=== PATIENT | female | born 2000 | race Caucasian/White ===

== ENCOUNTER 2024-04-13 18:09 | Emergency (ER) | payer OTHER, SELFPAY ==
[2024-04-13 18:10] VITALS: BMI 25.2
[2024-04-13 18:12] VITALS: BP 143/93
--- NOTE | 2024-04-13 20:20 | ED.GENMED ---
History of Present Illness
<Christos Kee DO - Last Filed: 04/14/24 19:26>
General
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
Source: patient
Time Seen by Provider: 04/13/24 20:05
Travel History
Have you had any contact with someone who has COVID-19?: No
Do you have any symptoms of coronavirus? Fever > 100 degrees, chills, cough, shortness of breath, sore throat, loss of taste or smell, muscle aches, or headache?: No
History of Present Illness
History of Present Illness:
23-year-old female presents to the emergency room complaining of vaginal bleeding. Patient states that she has been having irregular menstrual periods for the past couple months. She had heavier bleeding a couple days ago which has subsided in
amount but she has continued to have cramping. No fever or chills.
Phy Exam
<Christos Kee DO - Last Filed: 04/14/24 19:26>
Physical Exam
Physical Exam:
General: Awake, Alert, Oriented X3. No acute distress.
Vitals: unremarkable
Head: Atraumatic
Eyes: Pupils equal, EOMI
Throat: Airway intact, no exudates
Neck: Trachea midline
Lungs: Clear and equal b/l
Heart: Regular rate, no murmurs
Abd: Soft, Nontender, No pulsatile mass
Neuro: Nonfocal
Skin: Warm, dry, no rash
Extremities: pulses equal b/l, no edema
Course
<Christos Kee DO - Last Filed: 04/14/24 19:26>
Orders/Labs/Results
Orders:
Orders
04/13/24 20:13
Test Result ONCE
04/13/24 20:15
US Pelvis Only (non-obstetric) Urgent
Comment:
Reason For Exam: pelvic pain, vag bleeding
04/13/24 20:16
Ibuprofen [Motrin] 600 mg PO NOW STA
04/13/24 20:30
Beta Hcg Urine Qualitative Screen [HCG, Urine Qualitative Screen] Urgent
Date Specimen was Collected: 04/13/24
Time Specimen was Collected: 20:29
Urinalysis Reflex To Culture Urgent
Date Specimen was Collected: 04/13/24
Time Specimen was Collected: 20:29
Urine Microscopic Reflex Cult Urgent
Abnormal Lab Results
04/13/24
20:30
Ur Occult Blood Reflex 4+ A
(Negative)
Urine RBC 30-40 A /HPF
(0-2)
Urine Bacteria (Reflex) Few A
(Negative)
Vital Signs
Initial and Last Documented VS:
Initial Vital Signs
Temp Pulse Resp BP Pulse Ox
99.1 F 102 16 143/93 100
04/13/24 18:12 04/13/24 18:12 04/13/24 18:12 04/13/24 18:12 04/13/24 18:12
Last Documented Vital Signs
Temp Pulse Resp BP Pulse Ox
99.1 F 102 16 143/93 100
04/13/24 18:12 04/13/24 18:12 04/13/24 18:12 04/13/24 18:12 04/13/24 18:12
<Nilesh Schafer, DO - Last Filed: 04/13/24 23:46>
Orders/Labs/Results
Orders:
Orders
04/13/24 20:13
Test Result ONCE
04/13/24 20:15
US Pelvis Only (non-obstetric) Urgent
Comment:
Reason For Exam: pelvic pain, vag bleeding
04/13/24 20:16
Ibuprofen [Motrin] 600 mg PO NOW STA
04/13/24 20:30
Beta Hcg Urine Qualitative Screen [HCG, Urine Qualitative Screen] Urgent
Date Specimen was Collected: 04/13/24
Time Specimen was Collected: 20:29
Urinalysis Reflex To Culture Urgent
Date Specimen was Collected: 04/13/24
Time Specimen was Collected: 20:29
Urine Microscopic Reflex Cult Urgent
Abnormal Lab Results
04/13/24
20:30
Ur Occult Blood Reflex 4+ A
(Negative)
Urine RBC 30-40 A /HPF
(0-2)
Urine Bacteria (Reflex) Few A
(Negative)
Vital Signs
Initial and Last Documented VS:
Initial Vital Signs
Temp Pulse Resp BP Pulse Ox
99.1 F 102 16 143/93 100
04/13/24 18:12 04/13/24 18:12 04/13/24 18:12 04/13/24 18:12 04/13/24 18:12
Last Documented Vital Signs
Temp Pulse Resp BP Pulse Ox
99.1 F 102 16 143/93 100
04/13/24 18:12 04/13/24 18:12 04/13/24 18:12 04/13/24 18:12 04/13/24 18:12
<Christos Larson. [place], DO - Last Filed: 04/14/24 19:26>
MDM/Problems Addressed
Differential Diagnosis Includes:
, ectopic, dub
MDM/Problems Addressed:
Patient presents with cramping and irregular vaginal bleeding. Review test is negative. Imaging shows no abnormalities. Patient has normal labs. She has not had much bleeding or discomfort here in the emergency room. Patient stable for
discharge home.
<Christos Kee, DO - Last Filed: 04/14/24 19:26>
*Radiology
Radiology exam reviewed: radiology read reviewed
*Critical Care Note
Total Time (30-74mins, 75-104mins- exclusive of procedures): Not Applicable
<Nilesh Schafer, DO - Last Filed: 04/13/24 23:46>
Update Note
Update Note:
Care of patient was transitioned pending pelvic ultrasound. Complaining of abdominal cramping. Patient had recent IUD placed several months ago. She had bleeding and clots. Ultrasound shows IUD in correct position. Discussed follow-up with her
GROUP CARE WORKER
ED Attending Note
<Christos Kee, DO - Last Filed: 04/14/24 19:26>
-
Portions of this chart may have been created with voice recognition software.� Occasional wrong word or��sound alike� substitutions may have occurred due to the inherent limitations of voice recognition software.
Discharge Plan
Departure
Patient Disposition: Home (Routine Discharge)
Date of Disposition: 04/13/24
Time of Disposition: 23:45
Patient with high blood pressure during this ER visit?: Yes
Discharge Problem:
DUB (dysfunctional uterine bleeding)
Prescriptions:
No Action
propranolol 10 MG tablet
0.5 tab PO BIDPRN PRN (Reason: anxiety)
fluvoxamine 50 MG tablet
75 mg PO HS
Referrals:
Cisco Alonso, [Family Provider] -
Stand Alone Forms: Return to Work
Activity Restrictions/Additional Instructions:
The ultrasound shows the IUD in the correct place. Please follow-up with your GROUP CARE WORKER and please return for worsening symptoms.
Interventions
Interventions:
*Risk Screen - Suicide Last Done: 04/13/24 20:46
*General Assessment Last Done: 04/13/24 19:31
*Neglect/Abuse Screening Last Done: 04/13/24 20:46
ED- Fall Risk Assessment Last Done: 04/14/24 00:05
*ED COVID-19 Vaccine History Last Done: 04/13/24 19:31
*Nursing Disposition Last Done: 04/14/24 00:05
ED-Female Genitourinary Assessment Last Done: 04/13/24 19:32
Discharge Date and Time
Discharge Date/Time: 04/14/24 00:06
Print Language: WELSH
[2024-04-13] MEDS: MOTRIN 600 MG PO (20:22)
[2024-04-13 20:37] LABS: Urine Albumin Negative (Neg - Trace); Urine Bilirubin Negative (Negative); Urine Character Clear (Clear); Urine Color Yellow; Urine Glucose Negative (Negative); Urine Ketone Negative (Negative); Urine Leukocyte Negative (Negative); Urine Nitrite Negative (Negative); Urine Occult Blood 4+ (Negative); Urine Specific Gravity 1.005 (<1.030); Urine Urobilinogen Negative (Neg - 1+)
[2024-04-13 20:41] LABS: HCG, Urine Qualitative Screen Negative
[2024-04-13 20:51] LABS: Urine Red Blood Cell 30-40 /HPF (0-2); Urine White Cell 0-2 /HPF (0-5)
[2024-04-13 20:52] LABS: Urine Bacteria Few (Negative)
== END 2024-04-14 00:06 | disposition home or self-care (01) ==
LOC: EMR 18:09
PROVIDERS: EMERGENCY PHYSICIAN Emergency Medicine; FAMILY PHYSICIAN Family Medicine
DX: N93.8 Other specified abnormal uterine and vaginal bleeding (principal); R10.2 Pelvic and perineal pain; R03.0 Elevated blood-pressure reading, without diagnosis of hypertension
CPT/HCPCS: 99284; 76856; 81003; 81015; 81025

== ENCOUNTER → 2025-05-09 14:18 | Outpatient (REF) | payer OTHER, SELFPAY | LOC: HWRAD 14:18 | PROVIDERS: ATTENDING PHYSICIAN Physician Assistant Medical; FAMILY PHYSICIAN Student in an Organized Health Care Education/Training Program | DX: R22.1 Localized swelling, mass and lump, neck (principal) | CPT/HCPCS: 76536 ==